=== PATIENT | female | born 1935 | race Caucasian/White ===

== ENCOUNTER → 2018-04-30 | Outpatient (REF) ==
[~2018-04-30] MED LIST: 00186-0372-20 IH; ASPIRIN 81M81 MG/TA2 PO; CENTRUM SILVER1 CTB PO; CINNAMON500 MG PO; COUMADIN 5MG5 MG/TAB PO; COZAAR100 MG PO; GARLIC SUPPLEM300 MG PO; GRAPE SEED EXTR PO; HCTZ 25MG TAB25 MG PO; JANUVIA 100MG100 MG PO; MULTAQ400 MG PO; NORVASC 10MG10 MG PO; OMEGA 31000 MG PO; VITAMIN D 400400 IU PO; VITAMIN E100 I3 PO; ZOCOR 20MG20 MG PO; [UNRECOGNIZED DRUG - OTHER] PO
== END ==
LOC: ZLAB.WCH 18:23
DX: Z01.89 Encounter for other specified special examinations (principal)

== ENCOUNTER → 2018-05-03 | Outpatient (CLI) | payer MEDICARE, BC | LOC: COL.CARD 11:50 | DX: I48.91 Unspecified atrial fibrillation (principal); I08.0 Rheumatic disorders of both mitral and aortic valves ==

== ENCOUNTER → 2018-09-05 | Outpatient (REF) | LOC: ZLAB.WCH 19:14 | DX: Z01.89 Encounter for other specified special examinations (principal) ==

== ENCOUNTER → 2020-09-28 | Outpatient (CLI) | payer MEDICARE, BC | LOC: COL.VAS 13:14 | DX: R06.00 Dyspnea, unspecified (principal); I31.3 Pericardial effusion (noninflammatory); I35.0 Nonrheumatic aortic (valve) stenosis; I51.7 Cardiomegaly ==

== ENCOUNTER 2021-12-01 14:30 | Observation (INO) | payer MEDICARE, BC ==
[~2021-12-01] VITALS: Ht 152.4 cm; Wt 65.7 kg
[~2021-12-01 14:30] MED LIST changes: +MASON NATURAL1200 MG PO; -OMEGA 31000 MG PO
[2021-12-01] MEDS ORDERED: ELIQUIS 5MG PO (17:08)
[2021-12-01] MEDS ORDERED: FOSAMAX 70MG TA70 MG PO (17:15)
[2021-12-01] MEDS ORDERED: OSCAL 500 TAB500 MG PO (17:17)
[2021-12-01] MEDS ORDERED: CATAPRES 0.1MG0.1 MG PO (17:18)
[2021-12-01] MEDS ORDERED: NITRO-DUR0.2 MG/PAT TD (17:24)
[2021-12-01] MEDS ORDERED: AMOXICILLIN 50500 MG PO (17:26)
[2021-12-01] MEDS ORDERED: NORCO 325 MG-51 TAB PO (17:27)
--- NOTE | 2021-12-01 17:30 | NUR ---
Patient to room 343 by wheelchair, direct admit. Patient A&Ox4. VSS. Right eye red, complaints of pain in right eye which makes the patient shake. Nurse oriented the patient to location, room and call light. Patient independent in the room. Airborne precautions in place. Call light within reach
--- NOTE | 2021-12-01 18:09 | NUR ---
IV access not started, Doctor Tremayne aware and is okay with no IV access.
--- NOTE | 2021-12-01 18:35 | NUR ---
Patient to CT in wheelchair
[2021-12-01 19:29] VITALS: BP 177/65; PULSE 64; TEMP 97.7
--- NOTE | 2021-12-01 19:35 | NUR ---
RECEIVED CHANGE OF SHIFT REPORT FROM DAY SHIFT RN.
[2021-12-01 20:08] VITALS: BP 150/69
--- NOTE | 2021-12-01 21:00 | NUR ---
PATIENT REFUSED TO HAVE LAB DRAWN, DUE TO MULTIPLE UNSUCCESSFUL VENIPUNCTURE ATTEMPTS FROM NURSING STAFF AND LAB PHLEBOTOMISTS.
[2021-12-01 22:43] LABS: C-REACTIVE PROTEIN 0.5 mg/dL (0.00-0.50); CALCIUM 10.3 mg/dL (8.4-10.2); CREATININE, serum 1.39 mg/dL (0.57-1.11); POTASSIUM 4.2 mmol/L (3.5-4.5)
[2021-12-01 23:10] VITALS: BP 142/50; PULSE 60; TEMP 98
--- NOTE | 2021-12-02 | NUR ---
PROVIDER INFORMED OF PATIENT'S REFUSAL TO HAVE ADDITIONAL VENIPUNCTURES FOR LAB DRAWS DUE TO UNSUCCESSFUL IV STARTS FROM EARLIER IN AFTERNOON. NO NEW ORDERS GIVEN AT TIME OF PROVIDER NOTIFICATION.
[2021-12-02 04:51] VITALS: BP 147/58; PULSE 60; TEMP 98
[2021-12-02 06:45] LABS: BASO % 0.4 % (0.0-2.0); GRAN # 2.1 K/mm3 (1.4-6.5); HEMATOCRIT 37.8 % (37.0-47.0); HEMOGLOBIN 12.5 g/dl (12.5-16.0); LYMPH # 0.5 K/mm3 (1.2-3.4); LYMPH % 17.8 % (20.0-51.0); MEAN CELL VOLUME 86 fl (80.0-100.0); MEAN CORPUSCULAR HEMOGLOBIN 28 pg (27-31); MEAN CORPUSCULAR HGB CONC 33 g/dl (33.0-37.0); MEAN PLATELET VOLUME 10.2 fl (7.4-10.4); MONO # 0.1 K/mm3 (0.1-0.6); MONO % 5.1 % (1.7-9.3); PLATELET COUNT 224 K/mm3 (130-400); REDCELL DISTRIBUTION WIDTH-CV 13.5 % (11.5-14.5)
[2021-12-02 07:01] LABS: ALBUMIN 3.7 gm/dL (3.4-4.8); CALCIUM 9.6 mg/dL (8.4-10.2); CREATININE, serum 1.14 mg/dL (0.57-1.11); PHOSPHOROUS 2.9 mg/dL (2.3-4.7); POTASSIUM 4.6 mmol/L (3.5-4.5)
--- NOTE | 2021-12-02 07:30 | NUR ---
CHANGE OF SHIFT REPORT GIVEN TO DAY SHIFT RNGARY.
[2021-12-02 07:56] VITALS: BP 136/60; PULSE 67; TEMP 97.8
--- NOTE | 2021-12-02 10:04 | NUR ---
The patient is in airborne precautions for shingles. SW contacted the patient to discuss discharge plan. The patient lives alone in [place]. She states that her family lives out of state. She reports that she is perfectly independent and does not have any DME. The patient's PCP is Dr. Lance Adams and she receives her medications from [facility]. The patient does not have a DPOA-HC in EMR, but she states that she does have one completed. She states that her PCP's office should have a copy and that the form is at home. She states that she designated her nephew, Odell Brunson (ph#[phone]), and niece, Brenda Baires (ph#[phone]). The patient plans on returning home upon discharge. No additional needs at this time. *Discharge plan: home*
[2021-12-02 11:26] VITALS: BP 149/60; PULSE 61; TEMP 97.7
--- NOTE | 2021-12-02 11:27 | NUR ---
Patient alert and oriented x3. VSS. Patient here for shingles above right eye. Patient complains of pain 4/10 and describes at shooting pain that is intermittent. Patient denies any other pain. Patient independent in room, on room air. Assessment performed. Lungs CTA, Bowel sounds active. AM meds administered. Call light within reach.
[2021-12-02 15:25] VITALS: BP 149/66; BP 149/80; PULSE 80; TEMP 97.5
--- NOTE | 2021-12-02 20:08 | NUR ---
PT LAYING BED QUIETLY. PT REPORTS MANAGABLE PAIN AT THIS TIME.
[2021-12-02 21:16] VITALS: BP 167/59; PULSE 67; TEMP 98.2
[2021-12-03 00:11] VITALS: BP 137/47; PULSE 60; TEMP 97.8
--- NOTE | 2021-12-03 05:15 | NUR ---
PT LAYING IN BED RESTING AND COMPLAINING OF 5 OF 10 HEADACHE.
[2021-12-03 06:19] LABS: BASO % 0.1 % (0.0-2.0); GRAN # 5.5 K/mm3 (1.4-6.5); GRAN % 78.1 % (42.2-75.2); HEMOGLOBIN 11.3 g/dl (12.5-16.0); LYMPH # 0.9 K/mm3 (1.2-3.4); LYMPH % 12.6 % (20.0-51.0); MEAN CELL VOLUME 84 fl (80.0-100.0); MEAN CORPUSCULAR HEMOGLOBIN 29 pg (27-31); MEAN CORPUSCULAR HGB CONC 34 g/dl (33.0-37.0); MEAN PLATELET VOLUME 10.1 fl (7.4-10.4); MONO # 0.6 K/mm3 (0.1-0.6); MONO % 8.8 % (1.7-9.3); PLATELET COUNT 231 K/mm3 (130-400); RED BLOOD COUNT 3.94 M/mm3 (4.10-5.30); REDCELL DISTRIBUTION WIDTH-CV 13.3 % (11.5-14.5)
[2021-12-03 06:22] LABS: HEMATOCRIT 33.2 % (37.0-47.0)
[2021-12-03 06:37] LABS: ALBUMIN 3.3 gm/dL (3.4-4.8); CALCIUM 8.9 mg/dL (8.4-10.2); CREATININE, serum 1.14 mg/dL (0.57-1.11); MAGNESIUM 2.1 mg/dL (1.6-2.6); PHOSPHOROUS 2.7 mg/dL (2.3-4.7); POTASSIUM 4.3 mmol/L (3.5-4.5)
[2021-12-03 07:30] VITALS: BP 160/63; PULSE 64; TEMP 97.6
--- NOTE | 2021-12-03 10:40 | NUR ---
PATIENT ALERT AND ORIENTED X3. VSS. PATIENT HERE FOR SHINGLES OVER RIGHT EYE. PATIENT REPORTS PAIN 6/10. ASSESSMENT PERFORMED. AM MEDS ADMINISTERED. PATIENT SITTING IN BED WITH CALL LIGHT NEAR.
[2021-12-03] MEDS ORDERED: VALTREX1 GM PO (14:07)
[2021-12-03] MEDS ORDERED: TRILEPTAL 300M300 MG PO (14:08)
[2021-12-03] MEDS ORDERED: PREDNISONE20 MG PO (14:09)
[2021-12-03] MEDS ORDERED: LYRICA 50MG CAP50 MG PO (14:09)
[2021-12-03] MEDS ORDERED: PROTONIX 40MG T40 MG PO (14:10)
--- NOTE | 2021-12-03 16:26 | NUR ---
DISCHARGE INSTRUCTION PROVIDED, FOLLOW UP APPOINTMENTS DISCUSSED, PATIENT EDUCATION GIVEN. PATIENT DENIED ANY QUESTIONS OR CONCERNS. PATIENT ESCORTED OUT VIA WHEELCHAIR.
== END 2021-12-03 16:00 | disposition home or self-care (01) ==
LOC: MEDICAL 14:30 → EDSTATUS 15:51 → SURG 16:33
PROVIDERS: ADMIT Internal Medicine
DX: B02.9 Zoster without complications (principal); E11.9 Type 2 diabetes mellitus without complications; Z79.4 Long term (current) use of insulin; Z79.84 Long term (current) use of oral hypoglycemic drugs; I10 Essential (primary) hypertension; G43.909 Migraine, unspecified, not intractable, without status migrainosus; E87.1 Hypo-osmolality and hyponatremia; E87.6 Hypokalemia; D72.819 Decreased white blood cell count, unspecified
CPT/HCPCS: 99233-AI; G0378; J7512

== ENCOUNTER → 2023-03-28 | Outpatient (CLI) | payer MEDICARE, BC ==
[~2023-03-28] MED LIST changes: +AMOXICILLIN 50500 MG PO; +CATAPRES 0.1MG0.1 MG PO; +ELIQUIS 5MG PO; +FOSAMAX 70MG TA70 MG PO; +LYRICA 50MG CAP50 MG PO; +NITRO-DUR0.2 MG/PAT TD; +NORCO 325 MG-51 TAB PO; +OSCAL 500 TAB500 MG PO; +PREDNISONE20 MG PO; +PROTONIX 40MG T40 MG PO; +TRILEPTAL 300M300 MG PO; +VALTREX1 GM PO
== END ==
LOC: MHCPAIN 11:49
DX: M79.18 Myalgia, other site (principal); M54.6 Pain in thoracic spine; M47.814 Spondylosis without myelopathy or radiculopathy, thoracic region; B02.29 Other postherpetic nervous system involvement; I10 Essential (primary) hypertension; I48.91 Unspecified atrial fibrillation; E11.9 Type 2 diabetes mellitus without complications; Z79.01 Long term (current) use of anticoagulants
CPT/HCPCS: G0463; J0665; J1040